=== PATIENT | female | born 1985 | race Caucasian/White ===

== ENCOUNTER 2023-09-14 10:15 | Emergency (ER) | payer SELFPAY ==
[~2023-09-14] VITALS: Ht 165.1 cm; Wt 64.0 kg
[2023-09-14 10:24] VITALS: O2SAT 100
[2023-09-14 10:45] LABS: BASOPHILS % 1.1 % (0.0-2.0); EOSINOPHILS % 5.5 % (0.0-5.0); HEMATOCRIT. 29.7 % (36.0-48.0); HEMOGLOBIN. 9.4 g/dL (12.0-16.0); LYMPHOCYTES % 30.9 % (20.0-50.0); MEAN CORPUSCULAR HEMOGLOBIN 20.9 pg (28.0-32.0); MEAN CORPUSCULAR HGB CONC 31.7 g/dL (31.0-37.0); MEAN CORPUSCULAR VOLUME 66.1 fL (81.0-99.0); MEAN PLATELET VOLUME 7.5 fl (7.4-10.4); MONOCYTES % 7.5 % (2.0-8.0); PLATELET 295 x1000/uL (130-400); RED BLOOD CELL COUNT 4.49 mill/uL (4.2-5.4); WHITE BLOOD COUNT 6.2 x1000/uL (4.5-11.0)
[2023-09-14 10:51] LABS: CHLORIDE 110 mEq/L (98-107); POTASSIUM 3.4 mEq/L (3.5-5.1); SODIUM 139 mEq/L (136-145)
[2023-09-14 10:52] LABS: ADD RBC MORPHOLOGY YES; CALCIUM 8.6 mg/dL (8.7-10.4); CARBON DIOXIDE 20 mEq/L (21-32); DIFFERENTIAL COMMENT 1
[2023-09-14 10:57] LABS: CREATININE 0.8 mg/dL (0.6-1.0); GLUCOSE 108 mg/dL (70-105); UREA NITROGEN BLOOD 11 mg/dL (9-23)
[2023-09-14 11:44] LABS: PLATELET ESTIMATE NORMAL
[2023-09-14 11:45] LABS: ANISOCYTOSIS 2+; MICROCYTOSIS 3+
[2023-09-14] MEDS ORDERED: FERR325T6 MT (12:34)
[2023-09-14] MEDS ORDERED: PSEU60TA95 MT (12:34)
[2023-09-14 12:46] VITALS: BP 128/77; PULSE 88; RESP 16; TEMP 98.4
== END 2023-09-14 12:55 | disposition home or self-care (01) ==
LOC: ER 10:15
DX: D64.9 Anemia, unspecified (principal); H92.02 Otalgia, left ear
CPT/HCPCS: 36415; 80048; 85025; 93005; 99284